=== PATIENT | female | born 1990 | race African-American/Black ===

== ENCOUNTER 2017-04-16 22:29 | Emergency (ER) | payer OTHER ==
[~2017-04-16] VITALS: Ht 162.6 cm; Wt 65.8 kg
[~2017-04-16 22:29] MED LIST: A.E.R PADS1 JAR TOP; ACETAMINOPHEN325 M1; ACETAMINOPHEN325 M1 PO; APAP500; APAP500 PO; BACTRIM DS TAB1 EACH PO; COMPLETENATE T1 EACH; DERMOPLAST SPRA56 ML; HYDROCORTISONE30 G9; HYDROCORTISONE30 G9 RE; IBUPROFEN 400400 M1; IBUPROFEN 800800 M1 PO; IRON325; KEFLEX500 MG PO; LANOLIN56 GM; NOHOMEMEDICATIONS; NORCO 5-325 TA1 EACH PO; REGLAN 10 MG TA10 MG PO; TRINATE TABLET1 TAB PO; TUCKS MEDICATE1 EAC1; VICODIN 5-5001 EACH PO
[2017-04-16] MEDS ORDERED: NOHOMEMEDICATIONS (22:39)
[2017-04-16 23:07] LABS: URINE BILIRUBIN NEGATIVE (Negative); URINE BLOOD 2+ (Negative); URINE COLOR YELLOW; URINE GLUCOSE-RANDOM* NEGATIVE (Negative); URINE KETONES NEGATIVE (Negative); URINE NITRITE NEGATIVE (Negative); URINE PROTEIN (DIPSTICK) NEGATIVE (Negative); URINE SPECIFIC GRAVITY >= 1.030 (1.003-1.035); URINE UROBILINOGEN 0.2 E.U./dl (0.2-1.0)
[2017-04-16 23:23] LABS: SQUAMOUS >10 Many /LPF (0-3)
[2017-04-16 23:24] LABS: CASTS None Seen /LPF (None Seen); CRYSTALS None Seen /LPF (None Seen); URINE RBC 0-2 Rare /HPF (0-2); URINE WBC None Seen /HPF (0-5)
[2017-04-16 23:25] VITALS: BP 124/76
[2017-04-16] MEDS ORDERED: KEFLEX500 MG PO ×2 (23:26)
== END 2017-04-16 23:48 | disposition home or self-care (01) ==
LOC: ER 22:29
PROVIDERS: Nurse Practitioner Family
DX: R30.0 Dysuria (principal)

== ENCOUNTER 2017-06-06 17:35 | Emergency (ER) | payer OTHER ==
[~2017-06-06] VITALS: Ht 170.2 cm; Wt 56.2 kg
[2017-06-06 17:52] LABS: URINE BILIRUBIN NEGATIVE (Negative); URINE BLOOD NEGATIVE (Negative); URINE COLOR YELLOW; URINE GLUCOSE-RANDOM* NEGATIVE (Negative); URINE KETONES 1+ (Negative); URINE LEUKOCYTES-REFLEX TRACE (Negative); URINE PROTEIN (DIPSTICK) NEGATIVE (Negative)
[2017-06-06 17:59] LABS: SQUAMOUS 4-10 Moderate /LPF (0-3)
[2017-06-06 18:00] LABS: CASTS None Seen /LPF (None Seen); URINE RBC None Seen /HPF (0-2); URINE WBC-REFLEX 0-5 Rare /HPF (0-5)
[2017-06-06 18:01] LABS: CRYSTALS None Seen /LPF (None Seen)
[2017-06-06] MEDS ORDERED: TRINATE TABLET1 TAB PO (19:03)
[2017-06-06 19:14] VITALS: BP 114/72
[2017-06-08 14:12] LABS: CHLAMYDIA TRACHOMATIS-PCR Negative (Negative); NEISSERIA GONORRHEA-PCR Negative (Negative)
== END 2017-06-06 19:16 | disposition home or self-care (01) ==
LOC: ER 17:35
PROVIDERS: Physician Assistant
DX: O23.511 Infections of cervix in pregnancy, first trimester (principal); Z3A.00 Weeks of gestation of pregnancy not specified; Z20.2 Contact with and (suspected) exposure to infections with a predominantly sexual mode of transmission

== ENCOUNTER 2018-03-02 23:46 | Emergency (ER) | payer OTHER ==
[~2018-03-02] VITALS: Ht 162.6 cm; Wt 68.0 kg
[2018-03-03] MEDS ORDERED: BACTRIM DS TAB1 EACH PO (02:36)
[2018-03-03 02:56] VITALS: BP 131/77
== END 2018-03-03 02:57 | disposition home or self-care (01) ==
LOC: ER 23:46
DX: L72.3 Sebaceous cyst (principal)

== ENCOUNTER 2018-07-11 | Emergency (ER) | payer OTHER ==
[~2018-07-11] VITALS: Ht 162.6 cm; Wt 70.3 kg
[2018-07-11] MEDS ORDERED: BACTRIM DS TAB1 EACH PO (00:44)
[2018-07-11 00:59] VITALS: BP 98/54
== END 2018-07-11 03:01 | disposition home or self-care (01) ==
LOC: ER
DX: L02.01 Cutaneous abscess of face (principal)

== ENCOUNTER 2019-12-11 01:58 | Emergency (ER) | payer OTHER ==
[~2019-12-11] VITALS: Ht 162.6 cm; Wt 56.7 kg
[2019-12-11 03:11] LABS: HEMATOCRIT 39.3 % (37.0-47.0); HEMOGLOBIN 12.7 gm/dL (12.0-15.0); MCH 28.5 pg (26.0-34.0); MCHC 32.4 g/dL (28.0-37.0); RBC 4.46 mil/uL (4.20-5.00); RDW 15.2 % (10.5-14.5); WBC 5.9 thou/uL (4.0-11.0)
[2019-12-11 03:16] LABS: CALCIUM 9.5 mg/dL (8.5-10.1); CREATININE 0.8 mg/dL (0.6-1.0); POTASSIUM 3.8 mmol/L (3.5-5.1)
[2019-12-11] MEDS ORDERED: TRAMADOL 50 MG50 MG PO (04:34)
[2019-12-11 05:20] VITALS: BP 108/78
== END 2019-12-11 05:20 | disposition home or self-care (01) ==
LOC: ER 01:58
PROVIDERS: Emergency Medicine Emergency Medical Services
DX: F19.10 Other psychoactive substance abuse, uncomplicated (principal)